=== PATIENT | male | born 1975 | race Caucasian/White ===

== ENCOUNTER 2018-07-25 15:24 | Emergency (ER) | payer SELFPAY ==
[~2018-07-25] VITALS: Ht 170.2 cm; Wt 113.4 kg
--- NOTE | 2018-07-25 15:28 | NUR ---
PT BIBRA TO ER BED 13. WAS FOUND IN A BACK ALLEY. STRONG ETOH SMELL, PER REPORT OPT WAS HYPOTENSIVE IN THE SCENE. IVHL ESTABLISHE AND WAS GIVEN APPROX 350ML OF NORMAL SALINE. PT IS SLEEPING, EASILY AROUSABLE AND VERBALLY RESPONSIVE.
[2018-07-25] MEDS ORDERED: IV NS 0.9% 1,000 ML BAG IV ONE ×2 (16:00→21:30)
--- NOTE | 2018-07-25 16:00 | NUR ---
DR BEEBE AT BEDSIDE FOR EVAL.
[2018-07-25 16:14] LABS: BASOPHILS % (AUTO) 0.4 % (0.0-2.0); EOSINOPHILS % (AUTO) 0.1 % (0.0-6.0); HEMATOCRIT 45 % (39-51); LYMPHOCYTES # (AUTO) 1.1 /CMM (0.8-4.8); LYMPHOCYTES % (AUTO) 16.4 % (20.0-44.0); MEAN CORPUSCULAR HGB CONC 34 g/dl (31.0-36.0); MEAN CORPUSCULAR VOLUME 88 fL (80-96); MONOCYTES # (AUTO) 0.3 /CMM (0.1-1.30); MONOCYTES % (AUTO) 4.6 % (2.0-12.0); NEUTROPHILS # (AUTO) 5.1 /CMM (1.8-8.9); NEUTROPHILS % (AUTO) 78.5 % (43.0-81.0); PLATELET COUNT (AUTO) 179 /CMM (150-450); RDW COEFFICIENT OF VARIATION 12.9 (11.5-15.0); RED BLOOD CELL COUNT(AUTO) 5.09 MIL/uL (4.5-6.0); WHITE BLOOD COUNT (AUTO) 6.5 K/uL (4.3-11.0)
--- NOTE | 2018-07-25 16:29 | NUR ---
PT TO RADIOLOGY FOR HEAD CT SCAN VIA [facility].
[2018-07-25 16:33] LABS: CALCIUM, SERUM 8.3 mg/dL (8.5-10.1); CREATININE 0.9 mg/dL (0.6-1.3); POTASSIUM 3.4 mmol/L (3.5-5.1)
[2018-07-25 16:40] LABS: ALBUMIN 3.7 g/dL (3.4-5.0); BILIRUBIN,DIRECT 0.1 mg/dL (0.0-0.2); BILIRUBIN,TOTAL 0.5 mg/dL (0.2-1.0); TOTAL PROTEIN, SERUM 7.4 g/dL (6.4-8.2)
--- NOTE | 2018-07-25 18:54 | NUR ---
PT SLEEPING IN BED. EASILY AROUSABLE. ON MONITOR W/ STABLE VITALS. WILL CONT TO MONITOR.
[2018-07-25] MEDS ORDERED: ONDANSETRON HCL/PF 4 MG/2 ML VIAL IVP ONE (21:30)
[2018-07-25] MEDS ORDERED: ONDANSETRON HCL/PF 4 MG/2 ML VIAL ONE (21:39)
--- NOTE | 2018-07-25 21:52 | NUR ---
ASSUMED CARE OF PT AT THIS TIME. PT MEDICATED ORDERED AFTER C/O NAUSEA AND WANTING "A MEDICATION TO CALM ME DOWN". PLACED ON MONITOR. RESP EVEN AND UNLABORED. PLAN OF CARE DISCUSSED.
--- NOTE | 2018-07-25 22:35 | NUR ---
RESTING WITH NO S/S OF DISTRESS. RESP EVEN AND UNLABORED. STILL MONITORED.
--- NOTE | 2018-07-25 23:32 | NUR ---
RESTING LYING LT SIDE. NO S/S OF DISTRESS NOTED. RESP EVEN AND UNLABORED. WILL CONTINUE TO MONITOR PT.
--- NOTE | 2018-07-26 01:27 | NUR ---
REMAINS RESTING WITH EYES CLOSED BUT AROUSABLE. NO S/S OF ACUTE DISTRESS NOTED AT THIS TIME. RESP EVEN AND UNLABORED.
[2018-07-26] MEDS ORDERED: ONDANSETRON 4 MG TAB.RAPDIS ONE (02:42)
--- NOTE | 2018-07-26 02:45 | NUR ---
AAO X4. DENEIS ANY NEW OR WORSENING SX'S AT THIS TIME. RESP EVEN AND UNLABORED. Patient discharged to home in stable condition. Written and verbal after care instructions given. Patient verbalizes understanding of instruction. IV removed. Catheter intact and site benign. Pressure and 4x4 applied to site. No bleeding noted. Ambulatory with a steady gait
[2018-07-26 02:48] VITALS: BP 119/64
[2018-07-26] MEDS ORDERED: ONDANSETRON 4 MG TAB.RAPDIS SL ONE (03:00)
== END 2018-07-26 02:48 | disposition home or self-care (01) ==
LOC: ER 15:28
DX: F10.129 Alcohol abuse with intoxication, unspecified (principal); R74.0 Nonspecific elevation of levels of transaminase and lactic acid dehydrogenase [LDH]; R47.81 Slurred speech; R00.0 Tachycardia, unspecified; R41.82 Altered mental status, unspecified; R40.4 Transient alteration of awareness; Y90.8 Blood alcohol level of 240 mg/100 ml or more
CPT/HCPCS: 36415; 70450; 80048; 80076; 83690; 85025; 96361; 96374; 99285; A4606; G0480; J2405; J7030 ×2; Q0162; Z7610